=== PATIENT | female | born 1985 ===

== ENCOUNTER 2021-08-26 18:27 | Emergency (ER) | payer BC ==
[2021-08-27 00:48] LABS: SARS-CoV-2 PCR by NAA Not Detected (NotDetected)
== END 2021-08-26 19:22 | disposition home or self-care (01) ==
LOC: ERS 18:27
DX: J06.9 Acute upper respiratory infection, unspecified (principal); J00 Acute nasopharyngitis [common cold]; Z20.822 Contact with and (suspected) exposure to COVID-19; I10 Essential (primary) hypertension; F17.200 Nicotine dependence, unspecified, uncomplicated
CPT/HCPCS: 99283; U0003; U0005